=== PATIENT | female | born 1975 | race Caucasian/White ===

== ENCOUNTER 2024-10-11 08:52 | Emergency (ER) | payer MEDICAID, SELFPAY ==
--- NOTE | ~2024-10-11 | XR_ITS ---
PA, oblique, and lateral views of the left third finger CLINICAL HISTORY: Pain FINDINGS: No acute fracture or dislocation seen. Joint spaces are intact. Soft tissues are unremarkab le. IMPRESSION: Unremarkable exam. Reviewed, dictated and finalized at location M. IMPRESSION: Unremarkable exam.
--- NOTE | ~2024-10-11 | XR_ITS ---
PA, oblique, and lateral views of the left fourth finger CLINICAL HISTORY: Trigger finger FINDINGS: No fracture or dislocation seen. Joint spaces are intact. Soft tissues are unremarkable. IMPRESSION: Unremarkable exam. Reviewed, dictated and finalized at location M. IMPRESSION: Unremarkable exam.
--- NOTE | ~2024-10-11 | XR_ITS ---
AP, oblique, and lateral views of the left third toe CLINICAL HISTORY: Swelling FINDINGS: No fracture or dislocation seen. Joint spaces are intact. Probable mild diffuse soft tissue swelling. IMPRESSION: Mild diffuse soft tissue swelling of the third toe, nonspecific. No osseous or articular abnormality seen. Reviewed, dictated and finalized at [facility].
--- NOTE | 2024-10-11 08:59 | ED.GENADULT ---
HPI - General Adult General Chief complaint: Unspecified Stated complaint: L ear pain, fingers/toes locking up. Time Seen by Provider: 10/11/24 08:58 Source: patient Mode of arrival: ambulatory Limitations: no limitations History of Present Illness HPI narrative: 49 YEARS OLD WHITE FEMALE CAME TO THE ED BY PRIVATE CAR COMPLAINING OF LEFT RING FINGER INTERMITTENT SPASM WHEN SHE FLEXES SOMETIME NOT EASY TO EXTENDED AND WILL MAKE A NOISE FOR OVER 1 WEEK LEFT 3RD TOE SWOLLEN AND RED FOR OVER 2 MONTHS LEFT EAR ITCHING PAIN THE PT WAS DISCHARGED TO HOME.THE PT,S CONDITION UPON DISCHARGE WAS FAIR,EDUCATION WAS PROVIDED TO THE PT IN REFERENCE TO THE FINAL IMPRESSION,DISCHARGE STUDY RESULTS,TREATMENT,PROGNOSIS AND NEED FOR FOLLOW UP . AND ACHES THE LAST FEW DAYS PATIENT DENIES ANY FEVER, CHILLS, NAUSEA, VOMITING, TRAUMA. Related Data Allergies Allergy/AdvReac Type Severity Reaction Status Date / Time Penicillins Allergy Unknown vomit, Unverified 02/18/15 07:16 swelling clindamycin Allergy Swelling, Verified 10/11/24 08:53 vomiting Review of Systems Review of Systems: All systems reviewed & are unremarkable except as noted in HPI and below Exam Narrative: GENERAL APPEARANCE: WELL-DEVELOPED, WELL-NOURISHED SKIN: NORMAL COLOR HEAD: NORMOCEPHALIC, NONTRAUMATIC EYES: CLEAR CONJUNCTIVA ENT: OROPHARYNX NORMAL, EARS NORMAL, NOSE NORMAL, LEFT EAR EXAM SHOWED DIFFUSE TENDERNESS OF THE EAR CANAL, WHITE DISCHARGE, ERYTHEMATOUS CHANGES NECK: SUPPLE, NONTENDER CHEST AND RESPIRATORY: AIRWAY PATENT, NO RESPIRATORY DISTRESS, NO ACCESSORY MUSCLE USE HEART: REGULAR RATE/RHYTHM ABDOMEN: SOFT, NONTENDER, NO ORGANOMEGALY, QUIET BOWEL SOUNDS VASCULAR: NORMAL PERIPHERAL PULSES, NORMAL CAPILLARY REFILL. MUSCULOSKELETAL: LEFT 3RD TOE SHOWING DIFFUSE TENDERNESS, SLIGHTLY RED, SLIGHTLY SWOLLEN FOR, LEFT RING FINGER SHOWED NO SWELLING OR BRUISES OR LOCALIZED TENDERNESS NEUROLOGIC: ALERT AND ORIENTED ?3, NEAR EASTERN ARCHAEOLOGY LECTURER IS NORMAL TESTED, NO GROSS MOTOR DEFICIT Course Vital Signs Vital signs: Vital Signs Temperature 36.6 C 10/11/24 09:20 Pulse Rate 107 H 10/11/24 09:20 Respiratory Rate 16 10/11/24 09:20 Blood Pressure 137/104 H 10/11/24 09:20 Pulse Oximetry 100 10/11/24 09:20 Oxygen Delivery Room Air 10/11/24 09:20 Temperature 36.6 C 10/11/24 09:20 Pulse Rate 107 H 10/11/24 09:20 Respiratory Rate 16 10/11/24 09:20 Blood Pressure 137/104 H 10/11/24 09:20 Pulse Oximetry 100 10/11/24 09:20 Oxygen Delivery Room Air 10/11/24 09:20 Medical Decision Making Vital Signs Vital Signs: Vital Signs Temperature 36.6 C 10/11/24 09:20 Pulse Rate 107 H 10/11/24 09:20 Respiratory Rate 16 10/11/24 09:20 Blood Pressure 137/104 H 10/11/24 09:20 Pulse Oximetry 100 10/11/24 09:20 Oxygen Delivery Room Air 10/11/24 09:20 Temperature 36.6 C 10/11/24 09:20 Pulse Rate 107 H 10/11/24 09:20 Respiratory Rate 16 10/11/24 09:20 Blood Pressure 137/104 H 10/11/24 09:20 Pulse Oximetry 100 10/11/24 09:20 Oxygen Delivery Room Air 10/11/24 09:20 Imaging Data Radiologist's impression: Impressions Toe X-Ray 10/11/24 09:52 IMPRESSION: Mild diffuse soft tissue swelling of the third toe, nonspecific. No osseous or articular abnormality seen. Finger X-Ray 10/11/24 09:53 IMPRESSION: Unremarkable exam. Finger X-Ray 10/11/24 09:53 IMPRESSION: Unremarkable exam. Discharge Plan Discharge Clinical Impression: Trigger finger, Pain in toe, Otitis externa Patient Disposition: Home, Self-Care Condition: Stable Instructions: Antibiotic Form, Swimmer's Ear (ED), Trigger Finger (ED), Swollen Joint (ED) Additional Instructions: RETURN IF SYMPTOMS ARE WORSENING , CALL YOUR FAMILY PHYSICIAN FOR APPOINTMENT, TAKE TYLENOL NEEDED FOR ACHES AND PAIN, CONTINUE HOME MEDICATIONS. Patient Language: Swedish Prescriptions: New doxycycline hyclate 100 mg capsule 100 mg PO BID Qty: 14 0RF Cortisporin-TC 3.3-3-10-0.5 mg/mL drops,suspension 3 drp LEFT EAR TID Qty: 10 0RF indomethacin 75 mg capsule, extended release 75 mg PO BID Qty: 10 0RF Follow-up/Referrals: Erik Dixon MD [Physician] - 10/12/24 Marko Jarrett Jr., DPM [Physician] - 10/16/24 PHYSICIAN,PREFLIGHT INSPECTOR [Non-Staff] - Elroy Mars MD [Physician] - 10/15/24
[2024-10-11 09:20] VITALS: BP 137/104; PULSE 107; RESP 16; TEMP 36.6; O2SAT 100
--- OUTSIDE RECORDS SUMMARY | 2024-10-11 09:42 | XMS_ITS ---
Author Organization [facility] Address [address] [place] [address] Care Team Providers Care Band Cutter Name Role Phone Tori Ang Primary Care Provider Diego Luke [phone] REASON FOR VISIT Housing Social History Sex Assigned At : Social History Observation Description Sex Assigned At Female Encounters Encounter Location Date Provider Diagnosis [address] [place] [address] 10/04/2024 Diego Luke Plan Of Treatment No Information Progress Notes * Jamila OROZCOOB:1975 (49 yo F)Acc No.[id number]:10/04/2024 UNLOCKED PROGRESS NOTE Patient: Ramiro TIAisty :1975 A ge:49 Y S ex:Female Address: [address], [place], [address] * * Date:
--- OUTSIDE RECORDS SUMMARY | 2024-10-11 09:42 | XMS_ITS ---
Author Organization [facility] Address [address] [place] [address] Care Team Providers Care Loop Puller Name Role Phone Jorge LDonna [email or web address] Primary Care Provider [phone] Diego Luke [phone] REASON FOR VISIT No need to message me Social History Sex Assigned At : Social History Observation Description Sex Assigned At Female Encounters Encounter Location Date Provider Diagnosis [address] [place] [address] 10/05/2024 Diego Luke Plan Of Treatment No Information Progress Notes * Jamila OROZCOOB:1975 (49 yo F)Acc No.[id number]:10/05/2024 Patient: Clarissa TAI :1975 A ge:49 Y S ex:Female Address: [address], [place], [address] Subjective: * Chief Complaints: * N o need to message me * Medical History: * Surgical History: * Hospitalization/Major Diagno stic Procedure: * Medications: Objective: * Vitals: * Physical Examination: Assessment: Plan: * Treatment: * Procedure Codes: * true * Date: Generated for Printi ng/Faxing/eTransmitting on: 0 10/11/2024 09:42 AM CDT
--- OUTSIDE RECORDS SUMMARY | 2024-10-11 09:42 | XMS_ITS | Clinical Summary ---
Author Organization [facility] Address [address] [place] [address] Phone Care Team Providers Care Workforce Development Vice President Name Role Phone Provider, Unknown Primary Care Provider Unavaila ble Social History Tobacco Use Types Packs/Day Years Used Date Smoking Tobacco: Never Assessed Comments Unknown Sex and Gender Information Value Date Recorded Sex Assigned at Not on file Legal Sex Female 12:25 AM CDT Gender Identity Not on file Sexual Orientation Not on file Plan of Treatment Not on file Care Teams Workforce Development Vice President Relationship Specialty Start Date End Date Provider, Unknown UNKNOWN PCP - General 12/21/16
--- OUTSIDE RECORDS SUMMARY | 2024-10-11 09:42 | XMS_ITS | Data Portability ---
Author Organization [facility] Address [address] [place] [address] Assessment No assessment recorded. Plan of Treatment Reminders Order Date Submit Date Provider Last Modified By Organization Details Last Modified Time Details Appointments None recorded. Lab None recorded. Referral None recorded. Procedures None recorded. Surgeries None recorded. Imaging MAMMO, diagnostic , digital, bilateral 2024 025 KENDALL Moore [facility] (Radiology), [address] [facility] , [place], [address], 5 06:17:14 Medication Orders None recorded. Patient TargetsNo targets recorded. Patient InstructionsNo instructions recorded. Reason for Referral None Reported. Problems Name Problem SNOMED Code Status Onset Date Resolution Date Notes Provider Name and Address Organization Details Recorded Time Depressiv e disorder 14053477 Active 2017 Major depressiv e disorder, single episode, unspecifi ed;Practi ce ID: 0001 Not Available [facility] 0 15:09:[address] Concept Active 2017 Drug abuse counselin g and surveilla nce of drug abuser;Pr actice ID: 0001 Not Available [facility] 0 15:09:01 Psychoact saba substance abuse 38670343 Active 2017 Oth psychoact saba substance abuse w unsp disorder; Practice ID: 0001 Not Available [facility] 0 15:09:[address] Concept Active 2018 Anxiety disorder, unspecifi ed;Practi ce ID: 0001 Not Available [facility] 0 15:09:01 Abnormal uterine bleeding [id number] 100 Active 2015 Other specified abnormal uterine and vaginal bleeding; Recorded Elsewhere : No Locati on: [facility] So urce: EHR Chron ic: N Practic e ID: 0001 Bill able Time: 04:00:00 PM Not Available [facility] 0 15:09:02 Body mass index 30+ - obesity 399435144 Active 2016 Body mass index (BMI) 32.0-32.9 , adult;Rec orded Elsewhere : No Locati on: [facility] So urce: EHR Chron ic: N Practic e ID: 0001 Bill able Time: 08:30:00 AM Not Available [facility] 0 15:09:03 Pain in female genitalia Active 2015 Dysmenorr hea, unspecifi ed;Record ed Elsewhere : No Locati on: [facility] So urce: EHR Chron ic: N Practic e ID: 0001 Bill able Time: 03:00:00 PM Not Available [facility] 0 15:09:03 Backache 720102976 Active 2015 Dorsalgia , unspecifi ed;Practi ce ID: 0001 Not Available [facility] 0 15:09:04 Finding of menstrual bleeding Active 2015 Excessive and frequent menstruat ion with regular cycle;Rec orded Elsewhere : No Locati on: [facility] So urce: EHR Chron ic: N Practic e ID: 0001 Bill able Time: 03:30:00 PM Not Available [facility] 0 15:09:04 test negative 727713161 Active 2015 Encounter for test, result negative; Recorded Elsewhere : No Locati on: [facility] So urce: EHR Chron ic: N Practic e ID: 0001 Bill able Time: 04:00:00 PM Not Available [facility] 0 15:09:[address] Concept Active 2016 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) (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) w/o abn findings; Recorded Elsewhere : No Locati on: [facility] So urce: EHR Chron ic: N Practic e ID: 0001 Bill able Time: 08:30:00 AM Not Available [facility] 0 15:09:05 Finding of regularit y of menstrual cycle Active 2015 Irregular menstruat ion, unspecifi ed;Record ed Elsewhere : No Locati on: [facility] So urce: EHR Chron ic: N Practic e ID: 0001 Bill able Time: 03:30:00 PM Not Available [facility] 0 15:09:05 Education Active 2016 Encounter for other general counselin g on contracep tion;Kash rded Elsewhere : No Locati on: [facility] So urce: EHR Chron ic: N Practic e ID: 0001 Bill able Time: 08:45:00 AM Not Available [facility] 0 15:09:05 Rubella screening status 543618447 Active 2018 Encounter for screening , unspecifi ed;Practi ce ID: 0001 Not Available [facility] 0 15:09:07 Screening for malignant neoplasm of rectum Active 2016 Encounter for screening for malignant neoplasm of rectum;Pr actice ID: 0001 Not Available [facility] 0 15:09:07 Opioid abuse 0434093 Active 2016 Opioid abuse, uncomplic ated;Prac camille ID: 0001 Not Available [facility] 0 15:09:07 Finding of defecatio n Active 2017 Constipat ion, unspecifi ed;Practi ce ID: 0001 Not Available [facility] 0 15:09:11 Hypertens saba disorder 12827270 Active 2016 Hypertens ion;Recor ded Elsewhere : No Locati on: [facility] So urce: EHR Chron ic: N Practic e ID: 0001 Bill able Time: 08:45:00 AM Not Available [facility] 0 15:09:[address] Concept Active 2017 Encntr for general adult medical exam w/o abnormal findings; Recorded Elsewhere : No Locati on: [facility] So urce: EHR Chron ic: N Practic e ID: 0001 Bill able Time: 10:08:05 AM Not Available [facility] 0 15:09:15 Pelvic and perineal pain 594367387 Active 2016 Pelvic and perineal pain;Prac camille ID: 0001 Not Available [facility] 07/21/202 0 15:09:19 Notes:Indiv Gate Technician for Subs tance Abuse Treatment, Psychoeducation Recorded Elsewhere: No Location: [facility] Source: EHR Chronic: N Practice ID: 0001 Billable Time: 08:15:00 AM Indiv Gate Technician for Substance Abuse Treatment, Psychoeducation Recorded Elsewhere: No Location: [facility] Source: EHR Chronic: N Practice ID: 0001 Billable Time: 08:30:00 AM Indiv Gate Technician for Substance Abuse Treatment, Psychoeducation Recorded Elsewhere: No Location: [facility] Source: EHR Chronic: N Practice ID: 0001 Billable Time: 08:30:00 AM Indiv Gate Technician for Substance Abuse Treatment, Psychoeducation Recorded Elsewhere: No Location: [facility] Source: EHR Chronic: N Practice ID: 0001 Billable Time: 08:30:00 AM Indiv Gate Technician for Substance Abuse Treatment, Psychoeducation Recorded Elsewhere: No Location: [facility] Source: EHR Chronic: N Practice ID: 0001 Billable Time: 11:30:00 AM Indiv Gate Technician for Substance Abuse Treatment, Psychoeducation Recorded Elsewhere: No Location: [facility] Source: EHR Chronic: N Practice ID: 0001 Billable Time: 02:15:00 PM Indiv Gate Technician for Substance Abuse Treatment, Psychoeducation Recorded Elsewhere: No Location: [facility] Source: EHR Chronic: N Practice ID: 0001 Billable Time: 09:45:00 AM Indiv Gate Technician for Substance Abuse Treatment, Psychoeducation Recorded Elsewhere: No Location: [facility] Source: EHR Chronic: N Practice ID: 0001 Billable Time: 03:45:00 PM Indiv Gate Technician for Substance Abuse Treatment, Psychoeducation Recorded Elsewhere: No Location: [facility] Source: EHR Chronic: N Practice ID: 0001 Billable Time: 04:00:00 PM Indiv Gate Technician for Substance Abuse Treatment, Psychoeducation Recorded Elsewhere: No Location: [facility] Source: EHR Chronic: N Practice ID: 0001 Billable Time: 08:45:00 AM Indiv Gate Technician for Substance Abuse Treatment, Psychoeducation Recorded Elsewhere: No Location: [facility] Source: EHR Chronic: N Practice ID: 0001 Billable Time: 09:00:00 AM Indiv Gate Technician for Substance Abuse Treatment, Psychoeducation Recorded Elsewhere: No Location: [facility] Source: EHR Chronic: N Practice ID: 0001 Billable Time: 09:00:00 AM Indiv Gate Technician for Substance Abuse Treatment, Psychoeducation Recorded Elsewhere: No Location: [facility] Source: EHR Chronic: N Practice ID: 0001 Billable Time: 09:00:00 AM Indiv Gate Technician for Substance Abuse Treatment, Psychoeducation Recorded Elsewhere: No Location: [facility] Source: EHR Chronic: N Practice ID: 0001 Billable Time: 09:00:00 AM Indiv Gate Technician for Substance Abuse Treatment, Psychoeducation Recorded Elsewhere: No Location: [facility] Source: EHR Chronic: N Practice ID: 0001 Billable Time: 09:15:00 AM Indiv Gate Technician for Substance Abuse Treatment, Psychoeducation Recorded Elsewhere: No Location: [facility] Source: EHR Chronic: N Practice ID: 0001 Billable Time: 09:00:00 AM Indiv Gate Technician for Substance Abuse Treatment, Psychoeducation Recorded Elsewhere: No Location: [facility] Source: EHR Chronic: N Practice ID: 0001 Billable Time: 08:30:00 AM Indiv Gate Technician for Substance Abuse Treatment, Psychoeducation Recorded Elsewhere: No Location: [facility] Source: EHR Chronic: N Practice ID: 0001 Billable Time: 09:00:00 AM Indiv Gate Technician for Substance Abuse Treatment, Psychoeducation Recorded Elsewhere: No Location: [facility] Source: EHR Chronic: N Practice ID: 0001 Billable Time: 08:30:00 AM Indiv Gate Technician for Substance Abuse Treatment, Psychoeducation Recorded Elsewhere: No Location: [facility] Source: EHR Chronic: N Practice ID: 0001 Billable Time: 08:30:00 AM Indiv Gate Technician for Substance Abuse Treatment, Psychoeducation Recorded Elsewhere: No Location: [facility] Source: EHR Chronic: N Practice Problem Notes None recorded. Procedures Surgical History Date Name Laterality Status Provider Name and Address Organization Details Recorded Time 02/11/2022 Date of Last Pap Smear completed [facility] 09/27/2024 10:21:23 Imaging Results None recorded. Procedure Notes None recorded. Medical Equipment None Reported. Allergies Allergen ID Allergen Name Allergen Category Reaction Reaction Severity Criticality Documentation Date Start Date Code Code System Note Provider Name and Address Organization Details Recorded Time 61933 doxycycli ne Not available Not available Not available Not available 07/18/2020 3640 RxNorm Comme nt: Locat ion: [facility]; Not Available [facility] 0 14:17:47 09199 Product containin g penicilli n (product) medicatio n Not available Not available Not available 07/18/2020 08558 8001 SNOMED React ion: GI probl ems; Comme nt: Locat ion: [facility]lock [facility]; Not Available [facility] 0 14:17:47 31131 clindamyc in Not available Not available Not available Not available 07/18/2020 2582 RxNorm Comme nt: Locat ion: Ear[facility] Whitlock [facility]; Not Available [facility] 0 14:17:47 Medications Name Sig Start Date Stop Date Status Note LastModified by Organization Details LastModified Time Miralax 17 gram oral powder packet take 1 packet by oral route every day mixed with 8 oz. water, juice, soda, coffee or tea 01/26 completed Prescrib ed Elsewher e: Yes Loca tion: Rupa alla [facility] odify By: tonya tabares DateTime : 12/16/19 16 03:30:00 PM Not Available Not Available Not Available cyclobenz aprine 10 mg tablet take 1 tablet by oral route every day as needed 01/17 completed Prescrib ed Elsewher e: No Locat ion: Rupa alla [facility] odify By: meera Prabhakar ter DateTime : 08/08/19 09:00:00 AM Not Available Not Available Not Available Miralax 17 gram/dose oral powder TAKE (17G) BY ORAL ROUTE EVERY DAY MIXED WITH 8 OZ. WATER, JUICE, SODA, COFFEE OR TEA 01/17 completed Prescrib ed Elsewher e: No Locat ion: Deniseabran gold [facility] odify By: meera Prabhakar ter DateTime : 03/13/20 18 12:45:04 PM Not Available Not Available Not Available Colace 100 mg capsule take 3 capsule by oral route every day at bedtime as needed 01/25 completed Prescrib ed Elsewher e: No Locat ion: Loly gold [facility] odify By: bradley ledezma DateTime : 12/02/19 18 08:30:00 AM Not Available Not Available Not Available Prozac 40 mg capsule TAKE 1 CAPSULE BY ORAL ROUTE EVERY DAY IN THE MORNING 09/27 completed Prescrib ed Elsewher e: No Locat ion: Loly gold [facility] odify By: meera Prabhakar ter DateTime : 02/22/20 02:12:11 PM Not Available Not Available Not Available Claritin 10 mg tablet TAKE 1 TABLET BY ORAL ROUTE EVERY DAY 01/17 completed Prescrib ed Elsewher e: No Locat ion: Loly gold [facility] odify By: meera Prabhakar ter DateTime : 04/07/20 18 03:09:43 PM Not Available Not Available Not Available Effexor XR 37.5 mg capsule,e xtended release take 1 capsule by oral route every day with food 10/27 completed Prescrib ed Elsewher e: No Locat ion: Loly gold [facility] odify By: amked blancaunter DateTime : 09/08/19 18 08:30:00 AM Not Available Not Available Not Available lisinopri l 20 mg tablet take 1 tablet by oral route every day 02/21 completed Prescrib ed Elsewher e: Yes Loca tion: Loly gold [facility] odify By: meera Prabhakar ter DateTime : 02/07/20 19 08:30:00 AM Not Available Not Available Not Available Zithromax Z-Devan 250 mg tablet take 2 tablet by oral route every day for 1 day then 1 tablet (250 mg) by oral route once daily for 4 days 08/27 completed Prescrib ed Elsewher e: No Locat ion: Loly gold [facility] odify By: tgingric h Vanna ter DateTime : 08/23/19 18 07:23:34 AM Not Available Not Available Not Available Wellbutri n SR 150 mg tablet, 12 hr sustained -release take 1 tablet by oral route 2 times every day 04/15 completed Prescrib ed Elsewher e: No Locat ion: Loly gold [facility] odify By: zach padilla DateTime : 03/04/20 17 08:45:00 AM Not Available Not Available Not Available Dulcolax (bisacody l) 10 mg rectal supposito ry insert 1 supposit ory by rectal route every day as needed for constipa tion 01/07 completed Prescrib ed Elsewher e: No Locat ion: Loly gold [facility] odify By: zach blancaunter DateTime : 01/01/20 17 08:45:00 AM Not Available Not Available Not Available Zoloft 50 mg tablet take 1 tablet by oral route every day 05/09 completed Prescrib ed Elsewher e: No Locat ion: Rupa alla [facility] odify By: zach blancaunttiesha DateTime : 04/26/20 17 12:00:00 PM Not Available Not Available Not Available Valium 5 mg tablet take 1 tablet by oral route q 6hrs prn 10/14 completed Prescrib ed Elsewher e: No Locat ion: Loly gold [facility] odify By: zach blancaunttiesha DateTime : 12/17/19 16 10:08:33 AM Not Available Not Available Not Available Soma 350 mg tablet take 1 tablet by oral route 3 times every day and at bedtime 10/14 completed Prescrib ed Elsewher e: No Locat ion: Deniselina alla [facility] odify By: zach blancaunttiesha DateTime : 04/29/20 16 10:00:00 AM Not Available Not Available Not Available Prozac 20 mg capsule take 1 capsule by oral route every day in the morning 11/14 completed Prescrib ed Elsewher e: No [facility] By: ashkan blancaunttiesha DateTime : 10/20/19 19 12:16:17 PM Not Available Not Available Not Available lisinopri l 10 mg tablet take 1 tablet by oral route every day 04/29 completed Prescrib ed Elsewher e: No Locat ion: Loly gold [facility] odify By: tonya tabares DateTime : 04/08/20 17 09:00:00 AM Not Available Not Available Not Available Loestrin 08/20 (21) 1 mg-20 mcg tablet take 1 tablet by oral route every day 10/14 completed Prescrib ed Elsewher e: No Locat ion: Loly gold [facility] odify By: zach Gold ncounter DateTime : 04/29/20 16 10:00:00 AM Not Available Not Available Not Available promethaz ine 25 mg tablet take 1 tablet by oral route three times daily 02/21 completed Prescrib ed Elsewher e: No Locat ion: Loly gold [facility] odify By: meera tabares DateTime : 05/09/20 18 08:25:45 AM Not Available Not Available Not Available Adderall XR 10 mg capsule,e xtended release active Not Available Not Available Not Available ibuprofen 600 mg tablet TAKE 1 TABLET BY ORAL ROUTE 3 TIMES EVERY DAY WITH FOOD 02/21 completed Prescrib ed Elsewher e: No Locat ion: Loly gold [facility] odify By: meera tabares DateTime : 04/25/20 18 03:55:16 PM Not Available Not Available Not Available Zoloft 100 mg tablet take 1 1/2 tablet by oral route every day 08/08 completed Prescrib ed Elsewher e: No Locat ion: Loly gold [facility] odify By: amabundio Gold ncounter DateTime : 05/26/20 17 08:30:00 AM Not Available Not Available Not Available lisinopri l 40 mg tablet take 1 tablet by oral route every day 01/17 completed Prescrib ed Elsewher e: No Locat ion: Loly gold [facility] odify By: meera tabares DateTime : 04/21/20 18 10:49:33 AM Not Available Not Available Not Available doxycycli ne hyclate 100 mg tablet take 1 tablet by oral route 2 times every day 01/26 completed Prescrib ed Elsewher e: No Locat ion: Loly gold [facility] odify By: meera Prabhakar ter DateTime : 01/13/20 16 09:35:38 AM Not Available Not Available Not Available buspirone 15 mg tablet take 1 tablet by oral route two times per day 04/29 completed Prescrib ed Elsewher e: No Locat ion: Loly gold [facility] odify By: zach Gold ncounter DateTime : 04/22/20 17 03:35:12 PM Not Available Not Available Not Available Benadryl 25 mg capsule TAKE 2 CAPSULE BY ORAL ROUTE EVERY 4 - 6 HOURS NEEDED 01/17 completed Prescrib ed Elsewher e: No Locat ion: Loly gold [facility] odify By: meera Prabhakar ter DateTime : 03/31/20 18 02:35:13 PM Not Available Not Available Not Available Wellbutri n SR 200 mg tablet, 12 hr sustained -release TAKE 1 TABLET BY ORAL ROUTE 2 TIMES EVERY DAY 09/27 completed Prescrib ed Elsewher e: No Locat ion: Loly gold [facility] odify By: meera Prabhakar ter DateTime : 02/15/20 19 10:09:31 AM Not Available Not Available Not Available Lexapro 10 mg tablet take 1 tablet by oral route every day 07/07 completed Prescrib ed Elsewher e: No Locat ion: Rupa alla [facility] odify By: tgingeun h Vanna ter DateTime : 06/13/20 17 08:30:00 AM Not Available Not Available Not Available buprenorp katie HCl 2 mg sublingua l tablet place 2 tablet by sublingu al route every day allow to dissolve slowly in mouth without chewing or swallowi ng 01/14 completed Prescrib ed Elsewher e: No Locat ion: Loly gold [facility] odify By: zach Gold ncounter DateTime : 12/22/19 17 08:55:43 AM Not Available Not Available Not Available Pepcid AC 20 mg tablet take 1 tablet by oral route 2 times every day 01/17 completed Prescrib ed Elsewher e: No Locat ion: Loly gold [facility] odify By: meera Prabhakar ter DateTime : 10/20/19 19 12:16:17 PM Not Available Not Available Not Available estradiol active Not Available Not Shreya ilable Not Available progester one active Not Available Not Available Not Available lisinopri l active Not Available Not Available Not Available Adderall (10mg) active Not Available Not Available Not Available Advil Cold and Sinus 30 mg-200 mg capsule 12/29 completed Prescrib ed Elsewher e: Yes Loca tion: Loly gold [facility] odify By: zach Gold ncounter DateTime : 12/09/19 18 08:30:00 AM Not Available Not Available Not Available Acid Control (ranitidi ne) 150 mg tablet take 1 tablet by oral route 2 times every day 02/21 completed Prescrib ed Elsewher e: No Locat ion: Loly gold [facility] odify By: meera Prabhakar ter DateTime : 12/16/19 03:45:00 PM Not Available Not Available Not Available Minastrin 24 Fe 1 mg-20 mcg (24)/75 mg (4) chewable tablet chew 1 tablet by oral route every day 04/01 completed Prescrib ed Elsewher e: No Locat ion: Loly gold [facility] odify By: zach Gold ncounter DateTime : 10/15/19 17 08:30:00 AM Not Available Not Available Not Available Zubsolv 5.7 mg-1.4 mg sub[address] l tablet place 1 tablet by sublingu al route with Zubsolve 8.6 every day allow to dissolve slowly in mouth without chewing or swallowi ng 11/01 completed Prescrib ed Elsewher e: No Locat ion: Loly [facility] odify By: tgingric h Vanna ter DateTime : 10/25/19 18 07:21:47 AM Not Available Not Available Not Available buprenorp katie 1 tablet daily 09/27 completed Not Available Not Available Not Available Zubsolv 8.6 mg-2.1 mg sublingua l tablet place 1/2 tablet by sublingu al route 4 times a day allow to dissolve slowly in mouth without chewing or swallowi ng 2018 active Prescrib ed Elsewher e: No Locat ion: [facility] odify By: ashkan padilla DateTime : 04/21/20 19 10:37:04 PM Not Available Not Available Not Available Zubsolv 11.4 mg-2.9 mg sublingua l tablet place 1 tablet by sublingu al route every day allow to dissolve slowly in mouth without chewing or swallowi ng 03/18 completed Prescrib ed Elsewher e: No Locat ion: [facility] alla [facility] odify By: tonya tabares DateTime : 03/18/20 17 08:45:00 AM Not Available Not Available Not Available Zubsolv 2.9 mg-0.71 mg sublingua l tablet place 1 tablet by sublingu al route every day allow to dissolve slowly in mouth without chewing or swallowi ng 04/01 completed Prescrib ed Elsewher e: No Locat ion: [facility] odify By: tonya tabares DateTime : 04/01/20 17 08:45:00 AM Not Available Not Available Not Available Linzess 72 mcg capsule take 1 capsule by oral route every day on an empty stomach at least 30 minutes before 1st meal of the day 01/25 completed Prescrib ed Elsewher e: No Locat ion: [facility] odify By: bradley ledezma DateTime : 12/24/19 18 08:45:00 AM Not Available Not Available Not Available Vitals Date Recorded Body height Body mass index (BMI) Body weight Systolic blood pressure Diastolic blood pressure Provider Name and Address Organization Details Last Updated DateTime 09/27/2024 154.94 cm 22.3 kg/m2 24286.9 g 161 mm[Hg] 113 mm[Hg] Lucy Gloriaton [facility] 5 10:16:44 Social History Question Answer Notes LastModified by Organizat ion Details LastModified Time Tobacco Smoking Status Current Some Day Smoker Lucy Hamilton [facility], [facility] 09/27/2024 10:37:05 Do You Have An Advance Directive? No [email or web address] Information not available 09/27/2024 What Is Your Level Of Alcohol Consumption? None Information not available 09/27/2024 Are You Blind Or Do You Have Difficulty Seeing? Yes Information not available 09/27/2024 What Is Your Level Of Caffeine Consumption? Heavy [email or web address] Information not available 09/27/2024 How Much Tobacco Do You Chew? None [email or web address] Information not available 09/27/2024 In The 14 Days Before Symptom Onset, Have You Had Close Contact With A Laboratory-confir med COVID-19 While That Case Was Ill? No [email or web address] Information not available 09/27/2024 In The 14 Days Before Symptom Onset, Have You Had Close Contact With A Person Who Is Under Investigation For COVID-19 While That Person Was Ill? No [email or web address] Information not available 09/27/2024 Have You Been To An Area Known To Be High Risk For COVID-19? No [email or web address] Information not available 09/27/2024 Are You Currently Employed? Yes [email or web address] Information not available 09/27/2024 Are You Deaf Or Do You Have Serious Difficulty Hearing? No [email or web address] Information not available 09/27/2024 What Type Of Diet Are You Following? REGULAR [email or web address] Information not available 09/27/2024 What Is The Highest Grade Or Level Of School You Have Completed Or The Highest Degree You Have Received? 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 No [email or web address] Information not available 09/27/2024 Do You Use Your Seat Belt Or Car Seat Routinely? Yes Information not available 09/27/2024 Are You Sexually Active? No [email or web address] Information not available 09/27/2024 Do You Have Smoke And Carbon Monoxide Detectors In Your Home? No [email or web address] Information not available 09/27/2024 How Much Tobacco Do You Smoke? 1 PPW [email or web address] Information not available 09/27/2024 Do You Feel Stressed (tense, Restless, Nervous, Or Anxious, Or Unable To Sleep At Night)? [id number] [email or web address] Information not available 09/27/2024 Do You Use Any Illicit Or Recreational Drugs? No [email or web address] Information not available 09/27/2024 Do You Use Sunscreen Routinely? No [email or web address] Information not available 09/27/2024 How Many Years Have You Smoked Tobacco? 3 [email or web address] Information not available 09/27/2024 Have You Used IV Drugs? No [email or web address] Information not available 09/27/2024 Sex: Unknown Functional Status Question Answer Note LastModified by Organizat ion Details LastModified Time Do you have difficulty walking or climbing stairs? No [email or web address] Information not available 09/27/2024 Are you able to walk? YESWOREST [email or web address] Information not available 09/27/2024 Are you able to care for yourself? Yes [email or web address] Information not available 09/27/2024 Do you have difficulty dressing or bathing? No Information not available 09/27/2024 What is your exercise level? Occasional [email or web address] Information not available 09/27/2024 Mental Status None recorded. Family History Relationship Description Onset Age of this Age Resolved Age Notes LastModified by Organization Details LastModified Time Maternal Uncle Substance abuse [email or web address] Not available 2024 10:12:47 Maternal Uncle Mental disorder [email or web address] Not available 2024 10:12:47 Father Substance abuse [email or web address] Not available 2024 10:12:48 Paternal Grandmother Mental disorder [email or web address] Not available 2024 10:12:48 Mother Hypertensive disorder [email or web address] Not available 2024 10:12:48 Mother Substance abuse [email or web address] Not available 2024 10:12:48 Mother Mental disorder Not available 2024 10:12:48 Maternal Aunt Mental disorder [email or web address] Not available 2024 10:12:48 Unspecified Relation Malignant tumor of breast [email or web address] Not available 2024 10:12:48 Maternal Grandmother Mental disorder [email or web address] Not available 2024 10:12:48 Maternal Grandfather Hypertensive disorder [email or web address] Not available 2024 10:12:48 Maternal Grandfather Substance abuse [email or web address] Not available 2024 10:12:48 Maternal Grandfather Mental disorder [email or web address] Not available 2024 10:12:48 Medical History Condition Response Anxiety Disorder Y Other Y Acid Reflux (GERD) Y Hypertension Y Depression/ depression Y Gynecological History Statement/Question Response Abnormal Pap N Date of LMP 08/01/2023 On BCP's at Conception? N N STIs/STDs N HPV Vaccine N Current Control Method None Age at First Child 31 Sexually Active? N BCPs Menses Monthly N Age of first menstrual cycle 7 Date of Last Pap Smear 02/11/2022 Sexual Problems? N Desired Control Method None LMP Unknown Y Obstetrics History GPAL:G 5 P 0 0 3 2 Type Value Spontaneous 3 Living 2 Total 5 Past Encounters Encounter ID Performer Location Encounter Start Date Encounter Closed Date Diagnosis/Indication Diagnosis SNOMED-CT Code Diagnosis ICD10 Code Diagnosis Note [id number] NYDIA HAMILTON, RONALD [place] [address] [address] 09/27/2024 10:10:45 09/27/2024 11:07:52 Lump in upper outer quadrant of left breast [id number] 36895 N63.21 We discussed her breast exam findings and pt is counseled. Questions answered.I maging: Bilateral diagnostic mammogram ordered with ultrasound if needed.Con tacted [facility] and notified them of changes to mammogram order. Will fax new sheet.FU for WWE/pap smear.Opal ent advised to perform self-breas t exams and report any changes or concerns. Pain of left breast 1010 619913 N64.4 Recommende d well-fitti ng sports bra. Recommende d vitamin E supplement 400-600 IU once or twice daily to help with breast tenderness . Avoid caffeine and nicotine.P atient advised to perform self-breas t exams and report any changes.Wi ll evaluate left breast pain with diagnostic mammogram. Health Concerns Section Related Observation LastModified by Organization Detai ls LastModified Time None Recorded Concern Status LastModified by Organization Details LastModified Time None Recorded Advance Directives Directive N: Payers Encounter Date Sequence Insurance Name Policy Number Policy Suarez Covered Member ID Suarez Member ID Guarantor Name 09/27/2024 [facility] Clarissa Gabriel [id number] Clarissa Gabriel Notes Date Note Type Note Provider Name and Address Organization Details Recorded Time 09/27/2024 text/html New patient here for CBE through [facility].Has mammogram scheduled in 11/14/24 at [facility] for screening mammogram. Patient has never had a mammogram.Patient reports new sharp left breast pain that started 3 days ago.Denies lumps, nipple discharge, or skin changes.Patient started on estradiol and progesterone for HRT 6 months ago. NYDIA HAMILTON, HEALTH SAFETY COORDINATOR [address], [place], [address], [facility] 09/27/2024 11:07:40 OBGyn Episode Ob Episode Information Episode Created Date Number of Fetuses Patient Bloodtype Patient rh Status Prepregnancy Weight lbs Domestic Partner Domestic Partner Phone Father Name Neonatal Critical Care Nurse Status 09/27/19 1 CLOSED Fetus Data First Name Last Name Admitted to NICU Weight (g) Sex Living Outcome Pediatric Complications Fetus ID Race Codes Race Delivery Type 2948.34 8 F Prematur e [id number] Primary Jakob Calculation Initial Jakob Date Initial Exam Date Initial Exam Provider Initial Ultrasound Date Last Menstrual Period Date Ultra Sound Weeks Gestation 0 Eighteen To Twenty Week Jakob Update Ultra Sound Date Fundal Height At Umbil Quickening Date Ultra Sound Latest Weeks Gestation Final Jakob Confirmed By Final Jakob Confirmed Date Final Jakob Date Ultra Sound Latest Days Gestation 0 0 Menstrual History Last Menstrual Date Menses Monthly On Bcp Conception Prior Menses Frequency Hcg Plus Date Menarche Onset Age Delivery Information Delivery Date Delivery Type Labor Anesthesia Weeks Gestation Incision Type Labor Labor Length Hrs Delivered By Post Complications Tubal Sterilization Discharge Date Comments 9 36 Discharge Information Feeding Method Contraceptive Method Maternal HG B and HCT Levels Ob Episode Information Episode Created Date Number of Fetuses Patient Bloodtype Patient rh Status Prepregnancy Weight lbs Domestic Partner Domestic Partner Phone Father Name Neonatal Critical Care Nurse Status 09/27/19 1 CLOSED Fetus Data First Name Last Name Admitted to NICU Weight (g) Sex Living Outcome Pediatric Complications Fetus ID Race Codes Race Delivery Type 3231.84 3 M Full Term [id number] Primary Jakob Calculation Initial Jakob Date Initial Exam Date Initial Exam Provider Initial Ultrasound Date Last Menstrual Period Date Ultra Sound Weeks Gestation 0 Eighteen To Twenty Week Jakob Update Ultra Sound Date Fundal Height At Umbil Quickening Date Ultra Sound Latest Weeks Gestation Final Jakob Confirmed By Final Jakob Confirmed Date Final Jakob Date Ultra Sound Latest Days Gestation 0 0 Menstrual History Last Menstrual Date Menses Monthly On Bcp Conception Prior Menses Frequency Hcg Plus Date Menarche Onset Age Delivery Information Delivery Date Delivery Type Labor Anesthesia Weeks Gestation Incision Type Labor Labor Length Hrs Delivered By Post Complications Tubal Sterilization Discharge Date Comments 1 40 Discharge Information Feeding Method Contraceptive Method Maternal HG B and HCT Levels
--- OUTSIDE RECORDS SUMMARY | 2024-10-11 09:42 | XMS_ITS ---
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 Name Role Phone Tori Ang Primary Care Provider [phone] Diego Luke [phone] REASON FOR VISIT Richie Knight Social History Sex Assigned At : Social History Observation Description Sex Assigned At Female Encounters Encounter Location Date Provider Diagnosis [place] [address] [facility] [place] [address] 10/04/2024 Diego Luke Plan Of Treatment No Information Progress Notes * Jamila OROZCOOB:1975 (49 yo F)Acc No.[id number]:10/04/2024 Patient: Ivanna DYERClarissa LINO :1975 A ge:49 Y S ex:Female Address: [address], [place], [address] * true * Date: Generated for Lilliani klaudia/Avilag/eTransmitting on: 0 10/11/2024 09:41 AM CDT
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
[2024-10-11 10:23] VITALS: BP 166/105; PULSE 102; RESP 15; TEMP 36.6; O2SAT 100
--- OUTSIDE RECORDS SUMMARY | 2024-10-11 10:30 | XMS_ITS | Clinical Summary ---
Author Organization [facility] Address [address] [place] [address] Phone Care Team Providers Care Magazine Editor Name Role Phone Provider, Unknown Primary Care Provider Unavaila ble Social History Tobacco Use Types Packs/Day Years Used Date Smoking Tobacco: Never Assessed Comments Unknown Sex and Gender Information Value Date Recorded Sex Assigned at Not on file Legal Sex Female 12:25 AM CDT Gender Identity Not on file Sexual Orientation Not on file Plan of Treatment Not on file Care Teams Magazine Editor Relationship Specialty Start Date End Date Provider, Unknown UNKNOWN PCP - General 12/21/16
== END 2024-10-11 10:25 | disposition home or self-care (01) ==
PROVIDERS: Emergency Provider Emergency Medicine
DX: M65.342 Trigger finger, left ring finger (principal); M79.675 Pain in left toe(s); H60.92 Unspecified otitis externa, left ear
CPT/HCPCS: 73140; 73660; 99284